=== PATIENT | female | born 1955 | race American Indian/Alaskan Native ===

== ENCOUNTER 2017-05-31 15:14 | Emergency (ER) | payer OTHER | END 2017-05-31 16:48 | disposition left against medical advice (07) | LOC: DL.ED 15:14 | DX: Z53.21 Procedure and treatment not carried out due to patient leaving prior to being seen by health care provider (principal) ==

== ENCOUNTER 2019-05-15 16:33 | Emergency (ER) | payer OTHER ==
[2019-05-15 16:42] VITALS: BP 151/91; PULSE 98
[2019-05-15] MEDS ORDERED: Ondansetron 4 MG Tab.DIS PO ONE (16:53)
[2019-05-15] MEDS ORDERED: Ketorolac 30 MG/ML SDV IM ONE (16:55)
--- NOTE | 2019-05-15 16:57 | EDM.PDOC ---
<Tai Castillo - Last Filed: 05/15/19 17:29> ED HPI GENERAL MEDICAL PROBLEM - General Chief Complaint: Gastrointestinal Problem Stated Complaint: FLU Time Seen by Provider: 05/15/19 16:51 Source of Information: Reports: Patient, RN, RN Notes Reviewed History Limitations: Reports: No Limitations - History of Present Illness INITIAL COMMENTS - FREE TEXT/NARRATIVE: pt here with headache, N/V/dry heaving x3days, states that was diagnosed with flu a couple days ago. She states she has no appetite and whatever she drinks comes right back up. Denies abdominal pain, diarrhea or constipation. Onset Date: 05/13/19 Duration: Constant Location: Reports: Generalized Quality: Reports: Ache Severity: Moderate Improves with: Reports: None Worsens with: Reports: None Associated Symptoms: Reports: Cough, Fever/Chills, Headaches, Loss of Appetite, Nausea/Vomiting. Denies: Chest Pain, Shortness of Breath, Syncope, Weakness Treatments LABORATORY HELPER: Reports: Acetaminophen, NSAIDS Headache Pain Score (Numeric/FACES): 9 - Related Data Allergies Allergy/AdvReac Type Severity Reaction Status Date / Time No Known Allergies Allergy Verified 05/15/19 16:37 Home Meds: Home Meds Cholecalciferol (Vitamin D3) [Vitamin D3] 1,000 units PO DAILY 05/25/14 [History ] FLUoxetine [PROzac] 80 mg PO DAILY 05/25/14 [History] Ferrous Sulfate [Iron] 325 mg PO DAILY 05/25/14 [History] Multivitamin [Multi Vitamin Daily] 1 tab PO DAILY 05/25/14 [History] Past Medical History HEENT History: Reports: None Cardiovascular History: Reports: Aneurysm Respiratory History: Reports: None Gastrointestinal History: Reports: None Genitourinary History: Reports: None 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 Musculoskeletal History: Reports: None Neurological History: Reports: None Psychiatric History: Reports: None Endocrine/Metabolic History: Reports: None Hematologic History: Reports: None Immunologic History: Reports: None Oncologic (Cancer) History: Reports: None Dermatologic History: Reports: None - Infectious Disease History Infectious Disease History: Reports: None - Past Surgical History HEENT Surgical History: Reports: None Respiratory Surgical History: Reports: None GI Surgical History: Reports: None Female Surgical History: Reports: None Endocrine Surgical History: Reports: None Neurological Surgical History: Reports: None Musculoskeletal Surgical History: Reports: None Social & Family History - Family History Family Medical History: Noncontributory - Tobacco Use Smoking Status *Q: Never Smoker Second Hand Smoke Exposure: No - Caffeine Use Caffeine Use: Reports: Coffee - Recreational Drug Use Recreational Drug Use: No ED ROS GENERAL - Review of Systems Review Of Systems: See Below Constitutional: Reports: Fever, Decreased Appetite HEENT: Reports: No Symptoms Respiratory: Reports: Cough. Denies: Shortness of Breath, Wheezing Cardiovascular: Denies: Chest Pain, Edema, Lightheadedness, Palpitations, Syncope Endocrine: Reports: No Symptoms GI/Abdominal: Reports: Decreased Appetite, Nausea, Vomiting. Denies: Abdominal Pain, Constipation, Diarrhea : Reports: No Symptoms Musculoskeletal: Reports: No Symptoms Skin: Reports: No Symptoms Neurological: Reports: Headache. Denies: Dizziness, Numbness, Syncope Psychiatric: Reports: No Symptoms Hematologic/Lymphatic: Reports: No Symptoms Immunologic: Reports: No Symptoms ED EXAM, GI/ABD - Physical Exam Exam: See Below Exam Limited By: No Limitations General Appearance: Alert, Mild Distress Throat/Mouth: Normal Inspection, Normal Lips, Normal Teeth, Normal Gums, Normal Oropharynx, Normal Voice, No Airway Compromise Head: Atraumatic, Normocephalic Neck: Normal Inspection, Supple, Non-Tender, Full Range of Motion Respiratory/Chest: No Respiratory Distress, Lungs Clear, Normal Breath Sounds, No Accessory Muscle Use, Chest Non-Tender Cardiovascular: Normal Peripheral Pulses, Regular Rate, Rhythm, No Edema, No Gallop, No JVD, No Murmur, No Rub GI/Abdominal Exam: Normal Bowel Sounds, Soft, Non-Tender, No Organomegaly, No Distention, No Abnormal Bruit, No Mass, Pelvis Stable (Female) Exam: Deferred Rectal (Female) Exam: Deferred Neurological: Alert, Oriented, CN II-XII Intact, Normal Cognition, Normal Gait, Normal Reflexes, No Motor/Sensory Deficits Psychiatric: Normal Affect, Normal Mood Skin Exam: Warm, Dry, Intact, Normal Color, No Rash Lymphatic: No Adenopathy Course - Vital Signs Last Recorded V/S: Last Vital Signs Temp 98.8 F 05/15/19 16:39 Pulse 98 05/15/19 16:39 Resp 16 05/15/19 16:39 BP 151/91 H 05/15/19 16:39 Pulse Ox 96 05/15/19 16:39 - Orders/Labs/Meds Labs: Influenza A: Positive Influenza B: Negative Meds: Medications Discontinued Medications Generic Name Dose Route Start Last Admin Trade Name Neyda PRN Reason Stop Dose Admin Ketorolac Tromethamine 30 mg 05/15/19 16:55 05/15/19 17:27 Toradol IM 05/15/19 16:56 30 mg ONETIME ONE Administration Ondansetron HCl 4 mg 05/15/19 16:53 05/15/19 17:27 Zofran Odt PO 05/15/19 16:54 4 mg ONETIME ONE Administration Departure - Departure Time of Disposition: 17:45 Disposition: Home, Self-Care 01 Condition: Fair Clinical Impression: Influenza A - Discharge Information *PRESCRIPTION DRUG MONITORING PROGRAM REVIEWED*: Not Applicable *COPY OF PRESCRIPTION DRUG MONITORING REPORT IN PATIENT TEOFILO: Not Applicable Instructions: Influenza, Adult Forms: ED Department Discharge Additional Instructions: Rx: Zofran 4 mg Influenza A symptoms will last approximately 7-10 days. At this point Tamiflu will not help decrease length of symptoms. Use Zofran every 6-8 hours as needed for nausea. Drink plenty of fluids to maintain hydration. Follow-up in clinic with primary care provider if symptoms do not resolve after the 7-10 days or worsen. Use tylenol for fever control and ibuprofen for pain as needed. Sepsis Event Note - Evaluation Sepsis Screening Result: No Definite Risk - Focused Exam Vital Signs: Vital Signs Temp Pulse Resp BP Pulse Ox 05/15/19 16:39 98.8 F 98 16 151/91 H 96 Date Exam was Performed: 05/15/19 Time Exam was Performed: 17:29 <Don Ayala - Last Filed: 05/15/19 17:43> Sepsis Event Note - Focused Exam Date Exam was Performed: 05/15/19 Time Exam was Performed: 17:43
== END 2019-05-15 17:42 | disposition home or self-care (01) ==
LOC: DL.ED 16:33
DX: J10.1 Influenza due to other identified influenza virus with other respiratory manifestations (principal); Z79.899 Other long term (current) drug therapy
CPT/HCPCS: 87804; 96372; 99284; A9270; J1885; 99283

== ENCOUNTER 2020-08-22 23:30 | Emergency (ER) | payer MEDICARE, OTHER ==
[2020-08-22 23:52] VITALS: BP 121/57; PULSE 81
[2020-08-23] MEDS ORDERED: Orphenadrine 60 MG/2 ML Inj IM ONE (00:08)
[2020-08-23] MEDS ORDERED: Ketorolac 30 MG/ML SDV IM ONE (00:08)
--- NOTE | 2020-08-23 01:49 | CR ---
PROCEDURE INFORMATION: Exam: XR Lumbosacral Spine Exam date and time: 08/23/2020 12:30 AM Age: 65 years old Clinical indication: Other: Pain; Additional info: Fall lower lumbar pain TECHNIQUE: Imaging protocol: XR of the lumbosacral spine. Views: 2 or 3 views. COMPARISON: CR Thoracolumbar 2V 11/15/2018 11:17 AM FINDINGS: Bones/joints: Mild partial compression fracture superior endplate L1, unchanged. Moderate compression fracture superior endplate T8, unchanged. Grade 1 degenerative spondylolisthesis L4 upon L5. Moderate disc space narrowing 4 5 and to a greater extent L5-S1. Vacuum disc at L5-S1 noted. Advanced facet disease L4-L5 and L5-S1.The pedicles are intact. No visible bone destruction. Shallow left lumbar scoliosis. Status post left total hip replacement. Metallic plate fixes the left hemipelvis. Soft tissues: There is no soft tissue abnormality seen. Soft tissues IMPRESSION: 1. Chronic partial compression fractures as described. 2. Degenerative changes as described.
--- NOTE | 2020-08-23 01:59 | EDM.PDOC ---
ED HPI GENERAL MEDICAL PROBLEM - General Chief Complaint: Back Pain or Injury Stated Complaint: AMBULANCE Time Seen by Provider: 08/23/20 00:05 Source of Information: Reports: Patient History Limitations: Reports: No Limitations - History of Present Illness INITIAL COMMENTS - FREE TEXT/NARRATIVE: Pt comes to the emergency department today from home by ambulance with complaints of acute back pain. This patient earlier today was working in the garden when she got her feet caught up in something and fell backwards landing on her buttocks injury her lower back. She has been ambulatory since the fall. She did not hit her head. She denies any head neck of upper back pain. No paraesthesias to her upper or lower extremities or pelvis region. No loss of bowel or bladder. She is able to ambulate without difficulty. Her pain is in her lower back in the middle. No pain down either leg. She has taken some OTC pain medication tylenol with little to no relief. Back Pain Score (Numeric/FACES): 10 - Related Data Allergies Allergy/AdvReac Type Severity Reaction Status Date / Time No Known Allergies Allergy Verified 05/15/19 16:37 Home Meds: Home Meds Cholecalciferol (Vitamin D3) [Vitamin D3] 1,000 units PO DAILY 05/25/14 [History] FLUoxetine [PROzac] 80 mg PO DAILY 05/25/14 [History] Ferrous Sulfate [Iron] 325 mg PO DAILY 05/25/14 [History] Multivitamin [Multi Vitamin Daily] 1 tab PO DAILY 05/25/14 [History] Past Medical History HEENT History: Reports: None Cardiovascular History: Reports: Aneurysm Respiratory History: Reports: Asthma Gastrointestinal History: Reports: None Genitourinary History: Reports: None 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 Musculoskeletal History: Reports: None Neurological History: Reports: None Psychiatric History: Reports: None, Depression Endocrine/Metabolic History: Reports: None Hematologic History: Reports: None Immunologic History: Reports: None Oncologic (Cancer) History: Reports: None Dermatologic History: Reports: None - Infectious Disease History Infectious Disease History: Reports: None - Past Surgical History HEENT Surgical History: Reports: None Respiratory Surgical History: Reports: None GI Surgical History: Reports: None Female Surgical History: Reports: None Endocrine Surgical History: Reports: None Neurological Surgical History: Reports: None Musculoskeletal Surgical History: Reports: None, Other (See Below) Other Musculoskeletal Surgeries/Procedures:: Left hip replacement Social & Family History - Family History Family Medical History: No Pertinent Family History - Tobacco Use Tobacco Use Status *Q: Never Tobacco User Second Hand Smoke Exposure: No - Caffeine Use Caffeine Use: Reports: Coffee - Recreational Drug Use Recreational Drug Use: No ED ROS GENERAL - Review of Systems Review Of Systems: Comprehensive ROS is negative, except as noted in HPI. ED EXAM,LOWER BACK PAIN/INJURY - Physical Exam Exam: See Below Exam Limited By: No Limitations General Appearance: Alert, WD/WN, No Apparent Distress Eye Exam: Bilateral Eye: EOMI, PERRL Ears: Normal External Exam Nose: Normal Inspection, Normal Mucosa Throat/Mouth: Normal Inspection, Normal Lips, Normal Teeth, Normal Gums, Normal Oropharynx, Normal Voice, No Airway Compromise Head: Atraumatic, Normocephalic Neck: Normal Inspection, Supple, Non-Tender, Full Range of Motion. No: Tender Lateral, Tender Midline Respiratory/Chest: No Respiratory Distress, Lungs Clear, No Accessory Muscle Use, Chest Non-Tender Cardiovascular: Normal Peripheral Pulses, Regular Rate, Rhythm, No Edema, No Gallop GI/Abdominal: Normal Bowel Sounds, Soft, Non-Tender, No Organomegaly, No Distention, No Abnormal Bruit, Pelvis Stable (Female) Exam: Deferred Rectal (Female) Exam: Deferred Back Exam: Normal Inspection (Palpation down the posterior midline spine. There is some tenderness in the L 2-3-4 region region without any step offs or bony deformity. The rest of the back is unremarkable no bruising swelling ecchymosis or tenderness. ), Decreased Range of Motion, Vertebral Tenderness. No: CVA Tenderness (L), CVA Tenderness (R) Extremities: Normal Inspection, Normal Range of Motion, No Pedal Edema, Normal Capillary Refill Neurological: Alert, Normal Mood/Affect, Normal Dorsiflexion, CN II-XII Intact, Normal Plantar Flexion, Normal Gait, Normal Reflexes, No Motor/Sensory Deficits, Oriented x 3. No: Straight Leg Raise (L), Straight Leg Raise (R), Saddle Anesthesia, Difficulty Walking DTR - Lower Extremities: 2+: Knee (R), Knee (L), Ankle (R), Ankle (L) Psychiatric: Normal Affect, Normal Mood Skin Exam: Warm, Dry, Intact, Normal Color, No Rash Course - Vital Signs Last Recorded V/S: Last Vital Signs Temp 97.8 F 08/22/20 23:47 Pulse 81 08/22/20 23:47 Resp 16 08/22/20 23:47 BP 121/57 L 08/22/20 23:47 Pulse Ox 96 08/22/20 23:47 - Orders/Labs/Meds Meds: Medications Discontinued Medications Generic Name Dose Route Start Last Admin Trade Name Neyda PRN Reason Stop Dose Admin Ketorolac Tromethamine 30 mg 08/23/20 00:08 08/23/20 00:19 Ketorolac 30 Mg/Ml Sdv IM 08/23/20 00:09 30 mg ONETIME ONE Administration Orphenadrine Citrate 60 mg 08/23/20 00:08 08/23/20 00:18 Orphenadrine 60 Mg/2 Ml Inj IM 08/23/20 00:09 60 mg ONETIME ONE Administration - Radiology Interpretation Free Text/Narrative:: Xray lumbar spine with chronic partial compression fractures. Degenerative changes nothing acute. - Re-Assessments/Exams Free Text/Narrative Re-Assessment/Exam: 08/23/20 18:27 Xrays per radiology were negative. Ketorolac and norflex with improvement of her pain. We will discharge her home with Physical therapy as well as flexeril. Discharge instruction as below were explained to the patient she was comfortable with this plan and her questions answered. Departure - Departure Time of Disposition: 01:55 Disposition: Home, Self-Care 01 Clinical Impression: Lower back pain Qualifiers: Chronicity: acute Back pain laterality: midline Sciatica presence: without sciatica Qualified Code(s): M54.5 - Low back pain - Discharge Information Instructions: Acute Back Pain, Adult, Pain Medicine Instructions, [id number] Referrals: PCP,None [Primary Care Provider] - Forms: ED Department Discharge Additional Instructions: Tylenol and or Ibuprofen as needed for pain. Make sure your stay mobile so you don't get stiff also dont do too much., See physical therapy monday at [facility]. RX given to you. Flexeril, 1 tablet three times a day as needed for back pain spasms. Return to the ED if new or worsening symptoms. Follow up with PCP in the next 4-6 days if not improving sooner if worse. Sepsis Event Note (ED) - Evaluation Sepsis Screening Result: No Definite Risk
== END 2020-08-23 02:13 | disposition home or self-care (01) ==
LOC: DL.ED 23:30
DX: M54.5 Low back pain (principal); J45.909 Unspecified asthma, uncomplicated; Z79.899 Other long term (current) drug therapy
CPT/HCPCS: 72100; 96372; 99283; 99284; J1885; J2360

== ENCOUNTER 2023-05-01 11:14 | Emergency (ER) | payer MEDICARE, OTHER ==
[2023-05-01 11:37] VITALS: BP 103/79; PULSE 95
== END 2023-05-01 12:57 | disposition home or self-care (01) ==
LOC: DL.ED 11:14
DX: M46.1 Sacroiliitis, not elsewhere classified (principal)
CPT/HCPCS: 72220; 99283

== ENCOUNTER 2023-07-02 14:00 | Emergency (ER) | payer MEDICARE, OTHER ==
[2023-07-02 15:42] VITALS: BP 121/95; PULSE 87
== END 2023-07-02 15:44 | disposition home or self-care (01) ==
LOC: DL.ED 14:00
DX: M71.21 Synovial cyst of popliteal space [Baker], right knee (principal); I10 Essential (primary) hypertension; Z79.899 Other long term (current) drug therapy
CPT/HCPCS: 93971; 99283

== ENCOUNTER 2024-06-24 15:37 | Emergency (ER) | payer MEDICARE, OTHER ==
[2024-06-24 15:53] VITALS: BP 113/66; PULSE 95
== END 2024-06-24 16:03 | disposition home or self-care (01) ==
LOC: DL.ED 15:37
DX: S90.112A Contusion of left great toe without damage to nail, initial encounter (principal); S29.9XXA Unspecified injury of thorax, initial encounter; I10 Essential (primary) hypertension; Z79.899 Other long term (current) drug therapy; W01.0XXA Fall on same level from slipping, tripping and stumbling without subsequent striking against object, initial encounter; Y93.89 Activity, other specified
CPT/HCPCS: 99283; 99284

== ENCOUNTER 2024-08-11 14:10 | Emergency (ER) | payer MEDICARE, OTHER ==
[2024-08-11 14:20] VITALS: BP 105/88; PULSE 96
[2024-08-11] MEDS: Dexamethasone 4 MG/ML SDV IM ONE (14:26)
== END 2024-08-11 14:42 | disposition home or self-care (01) ==
LOC: DL.ED 14:10
DX: M79.604 Pain in right leg (principal); M79.605 Pain in left leg; I10 Essential (primary) hypertension; J45.909 Unspecified asthma, uncomplicated; Z79.899 Other long term (current) drug therapy
CPT/HCPCS: 96372; 99283; 99284; J1100

== ENCOUNTER 2025-01-12 06:21 | Emergency (ER) | payer MEDICARE, OTHER ==
[2025-01-12] MEDS: Buprenorphine/Naloxone 2-0.5 MG Tab.SL SL ONE (07:27)
[2025-01-12] MEDS: Buprenorphine/Naloxone 2-0.5 MG Tab.SL SL STA (07:31)
[2025-01-12 07:41] VITALS: BP 138/70; PULSE 80
== END 2025-01-12 07:40 | disposition home or self-care (01) ==
LOC: DL.ED 06:21
DX: F41.9 Anxiety disorder, unspecified (principal); I10 Essential (primary) hypertension; J45.909 Unspecified asthma, uncomplicated; Z79.899 Other long term (current) drug therapy
CPT/HCPCS: 99283; A9270

== ENCOUNTER 2025-01-16 10:27 | Emergency (ER) | payer MEDICARE, OTHER ==
[2025-01-16 11:07] VITALS: BP 124/59; PULSE 98
== END 2025-01-16 11:06 | disposition home or self-care (01) ==
LOC: DL.ED 10:27
DX: G47.00 Insomnia, unspecified (principal); F41.9 Anxiety disorder, unspecified; I10 Essential (primary) hypertension; J45.909 Unspecified asthma, uncomplicated; Z79.899 Other long term (current) drug therapy
CPT/HCPCS: 96372; 99283; J3360

== ENCOUNTER 2025-01-16 16:43 | Observation (INO) | payer MEDICARE, OTHER ==
[2025-01-16] MEDS ORDERED: Ondansetron 4 MG/2 ML SDV IVPUSH PRN (17:45)
[2025-01-16] MEDS ORDERED: Sodium Chloride 0.9% 10 ML Syringe FLUSH PRN (17:45)
[2025-01-16] MEDS ORDERED: Sennosides/Docusate Sodium 50-8.6 MG Tab PO PRN (17:45)
[2025-01-16 18:03] LABS: BASOPHILS PERCENT AUTO 0.7 % (0.0-1.0); EOSINOPHILS PERCENT AUTO 1.2 % (1.0-3.0); LYMPHOCYTES PERCENT AUTO 28.8 % (20.5-50.1); MONOCYTES PERCENT AUTO 7.3 % (2-8); NEUTROPHILS PERCENT AUTO 62.0 % (42.2-75.2); PLATELET COUNT,PLT 262 10^3/uL (150-450); RED BLOOD CELL COUNT 3.63 10^6/uL (4.2-5.4); WHITE BLOOD CELL COUNT,WBC 6.0 10^3/uL (5.0-10.0)
[2025-01-16 18:10] LABS: AMPHETAMINES,URINE NEGATIVE (NEGATIVE); BARBITURATES,URINE NEGATIVE (NEGATIVE); MDMA (ECSTASY), URINE NEGATIVE (NEGATIVE); METHAMPHETAMINES,URINE NEGATIVE (NEGATIVE); OPIATES,URINE NEGATIVE (NEGATIVE); OXYCODONE,URINE NEGATIVE (NEGATIVE); PHENCYCLIDINE,URINE NEGATIVE (NEGATIVE); TCA,URINE NEGATIVE (NEGATIVE)
[2025-01-16 18:31] LABS: A/G RATIO 0.9; ALANINE AMINOTRANSFERASE,ALT 16.0 U/L (14-59); ASPARTATE AMNIOTRANSFERASE,AST 17.0 U/L (15-37); BILIRUBIN TOTAL 0.3 mg/dL (0.2-1.0); BLOOD UREA NITROGEN,BUN 20.0 mg/dL (7-18); CARBON DIOXIDE,CO2 29.0 mmol/L (21-32); CHLORIDE,CL 107.0 mmol/L (98-107); CREATININE 0.68 mg/dL (0.55-1.02); EST CRCL DRUG DOSING (CG) 76.93 mL/min; GLUCOSE RANDOM 96.0 mg/dL (70-99); PHOSPHORUS 3.2 mg/dL (2.6-4.7); POTASSIUM,K 4.3 mmol/L (3.5-5.1); PROTEIN TOTAL,TP 7.0 g/dL (6.4-8.2); SODIUM,NA 144.0 mmol/L (136-145); T4 FREE 0.93 ng/dL (0.76-1.46); TSH ULTRASENSITIVE 1.4 uIU/mL (0.36-3.74)
[2025-01-16 18:32] LABS: ESTIMATED GFR 94.0 mL/min (>=60)
[2025-01-16 19:46] LABS: IRON,FE 68.0 ug/dL (50-170); PERCENT FE SATURATION 18.7 % (20.0-50.0)
[2025-01-16 20:10] LABS: FOLIC ACID > 20.0 ng/mL (8.6-58.9)
[2025-01-16] MEDS ORDERED: Flumazenil 0.1 MG/ML 5 ML MDV IVPUSH PRN (21:56)
[2025-01-16] MEDS: Sodium Chloride 0.9% 10 ML Syringe FLUSH SCH (22:19)
[2025-01-17 06:27] LABS: BASOPHILS PERCENT AUTO 1.1 % (0.0-1.0); EOSINOPHILS PERCENT AUTO 3.3 % (1.0-3.0); LYMPHOCYTES PERCENT AUTO 42.3 % (20.5-50.1); MONOCYTES PERCENT AUTO 11.1 % (2-8); NEUTROPHILS PERCENT AUTO 42.2 % (42.2-75.2); PLATELET COUNT,PLT 253 10^3/uL (150-450); RED BLOOD CELL COUNT 3.40 10^6/uL (4.2-5.4); WHITE BLOOD CELL COUNT,WBC 4.5 10^3/uL (5.0-10.0)
[2025-01-17 06:56] LABS: ALANINE AMINOTRANSFERASE,ALT 16.0 U/L (14-59); ASPARTATE AMNIOTRANSFERASE,AST 14.0 U/L (15-37); BILIRUBIN TOTAL 0.4 mg/dL (0.2-1.0); BLOOD UREA NITROGEN,BUN 15.0 mg/dL (7-18); CARBON DIOXIDE,CO2 27.0 mmol/L (21-32); CHLORIDE,CL 107.0 mmol/L (98-107); CREATININE 0.56 mg/dL (0.55-1.02); EST CRCL DRUG DOSING (CG) 91.43 mL/min; GLUCOSE RANDOM 106.0 mg/dL (70-99); POTASSIUM,K 3.6 mmol/L (3.5-5.1); PROTEIN TOTAL,TP 6.4 g/dL (6.4-8.2); SODIUM,NA 141.0 mmol/L (136-145)
[2025-01-17 07:01] LABS: A/G RATIO 0.94; ESTIMATED GFR 98.0 mL/min (>=60)
[2025-01-17] MEDS: Cholecalciferol (Vitamin D3) 25 MCG Tab PO SCH (09:19)
[2025-01-17] MEDS: buPROPion 150 MG Tab.ER PO SCH (09:19)
[2025-01-18 06:41] LABS: BASOPHILS PERCENT AUTO 1.0 % (0.0-1.0); EOSINOPHILS PERCENT AUTO 3.8 % (1.0-3.0); LYMPHOCYTES PERCENT AUTO 40.6 % (20.5-50.1); MONOCYTES PERCENT AUTO 9.6 % (2-8); NEUTROPHILS PERCENT AUTO 45.0 % (42.2-75.2); PLATELET COUNT,PLT 243 10^3/uL (150-450); RED BLOOD CELL COUNT 3.41 10^6/uL (4.2-5.4); WHITE BLOOD CELL COUNT,WBC 5.0 10^3/uL (5.0-10.0)
[2025-01-18 07:09] LABS: ALANINE AMINOTRANSFERASE,ALT 17.0 U/L (14-59); ASPARTATE AMNIOTRANSFERASE,AST 14.0 U/L (15-37); BILIRUBIN TOTAL 0.3 mg/dL (0.2-1.0); BLOOD UREA NITROGEN,BUN 14.0 mg/dL (7-18); CARBON DIOXIDE,CO2 26.0 mmol/L (21-32); CHLORIDE,CL 109.0 mmol/L (98-107); CREATININE 0.77 mg/dL (0.55-1.02); EST CRCL DRUG DOSING (CG) 66.45 mL/min; GLUCOSE RANDOM 95.0 mg/dL (70-99); POTASSIUM,K 3.7 mmol/L (3.5-5.1); PROTEIN TOTAL,TP 6.1 g/dL (6.4-8.2); SODIUM,NA 145.0 mmol/L (136-145)
[2025-01-18 07:10] LABS: A/G RATIO 0.85; ESTIMATED GFR 83.0 mL/min (>=60)
[2025-01-18 12:37] VITALS: BP 129/83; PULSE 77
== END 2025-01-18 12:15 | disposition home or self-care (01) ==
LOC: UNDOADMOB 17:04 → DL.MS 17:04
PROVIDERS: ADMIT Student in an Organized Health Care Education/Training Program; ATTEND Student in an Organized Health Care Education/Training Program
DX: F11.23 Opioid dependence with withdrawal (principal); G47.00 Insomnia, unspecified; F41.9 Anxiety disorder, unspecified; E86.0 Dehydration; D64.9 Anemia, unspecified; E88.09 Other disorders of plasma-protein metabolism, not elsewhere classified; I10 Essential (primary) hypertension; Z79.899 Other long term (current) drug therapy; Z87.891 Personal history of nicotine dependence
CPT/HCPCS: 36415; 80053; 80305; 82607; 82728; 82746; 83540; 83550; 83735; 84100; 84439; 84443; 85025; 96374; 96375; 96376; 99222; 99232; 99238; A9270; G0378; J2470; J3360; S5010